=== PATIENT | male | born 1985 ===

== ENCOUNTER 2017-04-04 08:30 | Emergency (ER) | payer MEDICAID ==
--- NOTE | 2017-04-04 09:42 | ED PDOC ---
HPI: Psych/Substance Abuse Time Seen by Provider: 04/04/17 09:09 Chief Complaint (Nursing): Anxiety Chief Complaint (Provider): Anxiety History Per: Patient History/Exam Limitations: no limitations Onset/Duration Of Symptoms: Mins Current Symptoms Are (Timing): Better Suicide/Self Injury Attempted (Context): None Modifying Factor(s): None Severity: Moderate Associated Symptoms: Anxiety Involuntary Hold By: None Additional Complaint(s): Patient is a 32 year old male brought to ED by EMS for anxiety attack this morning while going to work. Patient notes a history of anxiety attack in the past, states this was the same. Reports feeling "head heaviness" with visual disturbances making him feel like ending it all. Currently patient denies SI or HI, states he is not on any medication for anxiety and denies drug use. Past Medical History Reviewed: Historical Data, Nursing Documentation, Vital Signs Vital Signs: Last Vital Signs Temp 98 F 04/04/17 08:32 Pulse 76 04/04/17 08:32 Resp 18 04/04/17 08:32 BP 160/100 H 04/04/17 08:32 Pulse Ox 98 04/04/17 08:32 - Medical History PMH: Anxiety Denies: Diabetes, Hepatitis, HIV, HTN, Seizures, Sexually Transmitted Disease - Surgical History Surgical History: No Surg Hx - Family History Family History: States: Unknown Family Hx - Living Arrangements Living Arrangements: With Family - Social History Current smoker - smoking cessation education provided: No Alcohol: None Drugs: Denies - Home Medications Home Medications: Ambulatory Orders Medication Instructions Recorded No Known Home Med 04/04/17 - Allergies Allergies/Adverse Reactions: Allergies Allergy/AdvReac Type Severity Reaction Status Date / Time No Known Allergies Allergy Verified 04/04/17 08:32 Review of Systems Constitutional: Negative for: Fever Cardiovascular: Negative for: Chest Pain, Palpitations, Light Headedness Respiratory: Negative for: Shortness of Breath Gastrointestinal: Negative for: Nausea, Vomiting, Abdominal Pain Musculoskeletal: Negative for: Neck Pain Skin: Negative for: Rash Neurological: Positive for: Other ((+) Head heaviness ). Negative for: Weakness , Numbness, Headache Psych: Positive for: Anxiety. Negative for: Depression, Psychosis, Suicidal ideation Physical Exam - Reviewed Nursing Documentation Reviewed: Yes Vital Signs Reviewed: Yes - Physical Exam Appears: Positive for: Non-toxic, No Acute Distress Head Exam: Positive for: ATRAUMATIC Skin: Positive for: Normal Color, Warm Eye Exam: Positive for: Normal appearance, PERRL Neck: Positive for: Normal, Painless ROM Cardiovascular/Chest: Positive for: Regular Rate, Rhythm. Negative for: Murmur Respiratory: Positive for: Normal Breath Sounds. Negative for: Respiratory Distress Extremity: Positive for: Normal ROM. Negative for: Calf Tenderness Neurologic/Psych: Positive for: Alert, Oriented - ECG O2 Sat by Pulse Oximetry: 98 (RA) Pulse Ox Interpretation: Normal - Progress ED Course And Treament: 1400: Stable. AAOx3. Medically stable for psych. Crisis will admit. Medical Decision Making Medical Decision Making: Time: 914 Initial impression: Anxiety Initial plan: -- Crisis evaluation Scribe Attestation: Documented by Tati Lambert acting as a scribe for Ulises Zamora MD MD Scribe Attestation: All medical record entries made by the Scribe were at my direction and personally dictated by me. I have reviewed the chart and agree that the record accurately reflects my personal performance of the history, physical exam, medical decision making, and the department course for this patient. I have also personally directed, reviewed, and agree with the discharge instructions and disposition. Disposition - Clinical Impression Clinical Impression: Anxiety - Patient ED Disposition Is Patient to be Admitted: Yes Counseled Patient/Family Regarding: Diagnosis - Disposition Disposition Time: 13:00 Condition: STABLE - Pt Status Changed To: Hospital Disposition Of: Inpatient - Admit Certification Admit to Inpatient:: After my assessment, the patient will require hospitalization for at least two midnights. This is because of the severity of symptoms shown, intensity of services needed, and/or the medical risk in this patient being treated as an outpatient. - POA Present On Arrival: None
[2017-04-04 15:25] VITALS: BP 122/65; PULSE 81; RESP 16; TEMP 98; O2SAT 100
== END 2017-04-04 15:24 | disposition home or self-care (01) ==
LOC: H.ER 08:30
DX: F41.9 Anxiety disorder, unspecified (principal)

== ENCOUNTER 2017-08-10 14:49 | Emergency (ER) | payer MEDICAID ==
[2017-08-10 15:01] VITALS: BP 151/100; PULSE 69; RESP 18; TEMP 98; O2SAT 100
== END 2017-08-10 17:09 | disposition home or self-care (01) ==
LOC: H.ER 14:49
DX: R59.1 Generalized enlarged lymph nodes (principal)

== ENCOUNTER 2018-03-03 11:50 | Emergency (ER) | payer MEDICAID, OTHER ==
[2018-03-03 11:54] VITALS: BMI 30.8
--- NOTE | 2018-03-03 13:13 | ED PDOC ---
HPI: General Adult Time Seen by Provider: 03/03/18 12:29 Chief Complaint (Nursing): Anxiety Chief Complaint (Provider): Anxiety History Per: Patient History/Exam Limitations: no limitations Onset/Duration Of Symptoms: Hrs (x1) Current Symptoms Are (Timing): Still Present Additional Complaint(s): Alan Lynn is a 33 year old male with a past medical history of anxiety, who is presenting to the ER for evaluation s/p anxiety attack onset one hour prior to arrival. Patient states that EMS was called after onset of anxiety attack and at the time he felt chest discomfort, neck pain, and muscle stiffness. He states that all symptoms have resolved since then. Patient reports that when EMS arrived his blood pressure was high, so they observed him and repeated blood pressure check. Blood pressure remained high, so they recommended he visit the ED. Patient currently has no complaints and denies any headache, chest pain, or dizziness. PMD: none provided Past Medical History Reviewed: Historical Data, Nursing Documentation, Vital Signs Vital Signs: Last Vital Signs Temp 97.9 F 03/03/18 11:54 Pulse 87 03/03/18 13:24 Resp 17 03/03/18 11:54 BP 164/89 H 03/03/18 14:45 Pulse Ox 97 03/03/18 13:18 - Medical History PMH: Anxiety Denies: Diabetes, Hepatitis, HIV, HTN, Seizures, Sexually Transmitted Disease - Family History Family History: States: Diabetes - Social History Current smoker - smoking cessation education provided: No Alcohol: Occasional - Home Medications Home Medications: Ambulatory Orders Medication Instructions Recorded Amoxicillin/Clavulanate [Augmentin 1 tab PO BID #14 tab 08/10/17 875 MG-125 MG] Ibuprofen [Motrin] 600 mg PO Q6 #20 tab 08/10/17 amLODIPine [Norvasc] 5 mg PO DAILY #30 tab 03/03/18 - Allergies Allergies/Adverse Reactions: Allergies Allergy/AdvReac Type Severity Reaction Status Date / Time No Known Allergies Allergy Verified 04/04/17 08:32 Review of Systems ROS Statement: Except As Marked, All Systems Reviewed And Found Negative Cardiovascular: Negative for: Chest Pain Neurological: Negative for: Headache, Dizziness Physical Exam - Reviewed Nursing Documentation Reviewed: Yes Vital Signs Reviewed: Yes - Physical Exam Comments: GENERAL APPEARANCE: Patient is awake, alert, oriented x 3, in no acute distress. SKIN: Warm, dry; (-) cyanosis. EYES: (-) conjunctival pallor. ENMT: Mucous membranes moist. NECK: (-) tenderness, (-) stiffness, (-) lymphadenopathy, (-) JVD. CHEST AND RESPIRATORY: (-) rash, (-) chest wall tenderness. Lungs: (-) rales , (-) rhonchi, (-) wheezes, (-) rub; breath sounds equal bilaterally. HEART AND CARDIOVASCULAR: (-) irregularity; (-) murmur, (-) gallop, (-) rub. ABDOMEN AND GI: Soft; (-) distention, (-) tenderness, (-) palpable pulsatile mass. EXTREMITIES: (-) deformity; (-) edema, (-) calf tenderness. (+) distal pulses. NEURO AND PSYCH: Mental status as above. Cranial nerves grossly intact; strength symmetric. - Laboratory Results Result Diagrams: 03/03/18 13:20 03/03/18 13:20 - ECG O2 Sat by Pulse Oximetry: 97 (RA) Pulse Ox Interpretation: Normal Medical Decision Making Medical Decision Making: Previous medical records reviewed, patient has had several visits to the emergency room last year, in December his blood pressure is 146/83 in March his blood pressure was 160/108 August his pressure was 151/100. Blood pressure readings from previous ER visits d/w the pt. Considering pt's age and other risk factors such as being overweight and being a smoker, labs, EKG and chest x-ray performed. Time: 13:08 Plan: --EKG --CMP --Troponin --CBC --CXR --Norvasc 5 mg PO --Urinalysis Blood pressure was repeated in the ED: 177/122 EKG: SR at 76 bpm, (-) acute ST changes, as read by DESI. CXR : NAD, as read by PA Labs reviewed, troponin is negative, urine dipstick performed and shows negative proteins and a urine otherwise within normal limits. On reevaluation, patient is laying in bed comfortably without distress, is calm and not anxious. Denies any headache, dizziness, chest pain, shortness of breath. Blood pressure is 164/89. Based on history, exam and diagnostic results plan will be for outpatient follow-up with the clinic. Patient advised that he has follow-up with a doctor regarding his high blood pressure. Advised to follow up with the clinic in 1-2 days without fail. Advised to take medication as prescribed. Return to the emergency room at any time for any new or worsening symptoms. Patient states he fully agrees with and understands discharge instructions. States that he agrees with the plan and disposition. Verbalized and repeated discharge instructions and plan. I have given the patient opportunity to ask any additional questions. Scribe Attestation: Documented by Rosi Sexton, acting as a scribe for Anjelica Mosley PA-C. Provider Scribe Attestation: All medical record entries made by the Scribe were at my direction and personally dictated by me. I have reviewed the chart and agree that the record accurately reflects my personal performance of the history, physical exam, medical decision making, and the department course for this patient. I have also personally directed, reviewed, and agree with the discharge instructions and disposition. Disposition - Clinical Impression Clinical Impression: Anxiety attack, Hypertension - Patient ED Disposition Is Patient to be Admitted: No Counseled Patient/Family Regarding: Studies Performed, Diagnosis, Need For Followup, Rx Given - Disposition Referrals: [facility] [Outside] Disposition: Routine/Home Disposition Time: 15:00 Condition: STABLE Additional Instructions: Thank you for letting us take care of you today. You were treated for status post anxiety attack, hypertension. The emergency medical care you received today was directed at your acute symptoms. If you were prescribed any medication , please fill it and take as directed. It may take several days for your symptoms to resolve. Return to the Emergency Department if your symptoms worsen , do not improve, or if you have any other problems. Please call one of the physicians/clinics you have been referred to that are listed on the Patient Visit Information form that is included in your discharge packet. Bring any paperwork you were given at discharge with you along with any medications you are taking to your follow up visit. Our treatment cannot replace ongoing medical care by a primary care provider (PCP) outside of the emergency department. Thank you for allowing the [facility] team to be part of your care today. 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
[2018-03-03 13:33] LABS: BASO # 0.1 K/uL (0.0-0.2); BASO % 0.5 % (0.0-2.0); EOS # 0.1 K/uL (0.0-0.7); EOS % 0.7 % (0.0-4.0); HEMOGLOBIN 16.9 g/dL (12.0-18.0); LYMPH # 1.2 K/uL (1.0-4.3); LYMPH % 9.5 % (20.0-40.0); MEAN CELL VOLUME 86.5 fl (80.0-94.0); MEAN CORPUSCULAR HEMOGLOBIN 30.8 pg (27.0-31.0); MEAN CORPUSCULAR HGB CONC 35.6 g/dL (33.0-37.0); MEAN PLATELET VOLUME 9.2 fl (7.2-11.7); MONO # 0.8 K/uL (0.0-0.8); MONO % 6.1 % (0.0-10.0); NEUT # 10.4 K/uL (1.8-7.0); NEUT % 83.2 % (50.0-75.0); NRBC % 1.2 % (0.0-0.0); PLATELET COUNT 213 K/uL (130-400); RBC 5.49 Mil/uL (4.40-5.90); RED CELL DISTRIBUTION WIDTH 13.3 % (11.5-14.5); WHITE BLOOD COUNT 12.5 K/uL (4.8-10.8)
[2018-03-03 13:50] LABS: ALB/GLOB RATIO 1.2 (1.0-2.1); ALBUMIN 4.6 g/dL (3.5-5.0); ALT/SGPT 118 U/L (21-72); AST/SGOT 67 U/L (17-59); BLOOD UREA NITROGEN 13 mg/dl (9-20); CALCIUM 9.7 mg/dL (8.4-10.2); GFR AFRICAN-AMERICAN > 60; GFR NON-AFRICAN AMERICAN > 60
[2018-03-03 14:34] LABS: BASOPHIL 1 % (0-2); LYMPHOCYTE 11 % (20-50); MONOCYTE 10 % (0-10); NEUTROPHIL 76 % (42-75); PLATELET ESTIMATE NORMAL (NORMAL); REACTIVE LYMPHOCYTES 2 % (0-0); TOTAL CELLS COUNTED 100
--- NOTE | 2018-03-03 14:36 | RAD ---
HISTORY: COMPARISON: No prior. TECHNIQUE: Chest PA and lateral FINDINGS: LINES AND TUBES: None. LUNG AND PLEURA: The lungs are well inflated and clear. No pleural effusions or pneumothorax. HEART AND MEDIASTINUM: The heart is not enlarged. The hilar and mediastinal contours are within normal limits. SKELETAL STRUCTURES: The bony structures are within normal limits for the patient's age. VISUALIZED UPPER ABDOMEN: Normal. OTHER FINDINGS: None. IMPRESSION: No active pulmonary disease.
[2018-03-03 14:45] VITALS: BP 164/89
[2018-03-03 15:14] VITALS: PULSE 74; RESP 22; TEMP 98.1; O2SAT 99
--- NOTE | 2018-03-04 08:52 | CARD ---
APPROVED REPORT EKG Measurement Heart [id number] <Conclusion> Sinus rhythm with marked sinus arrhythmia Nonspecific T wave abnormality Abnormal ECG
== END 2018-03-03 15:14 | disposition home or self-care (01) ==
LOC: H.ER 11:50
DX: F41.9 Anxiety disorder, unspecified (principal); I10 Essential (primary) hypertension

== ENCOUNTER 2019-02-12 21:34 | Emergency (ER) | payer MEDICAID ==
[2019-02-12 21:34] VITALS: BMI 30.8
[2019-02-12 22:35] VITALS: PULSE 86; RESP 18
--- NOTE | 2019-02-12 23:12 | ED PDOC ---
HPI: Influenza Time Seen by Provider: 02/12/19 22:55 Chief Complaint: Cough, Cold, Congestion Past Medical History Vital Signs: Last Vital Signs Temp 97.5 F L 02/12/19 22:31 Pulse 86 02/12/19 22:31 Resp 18 02/12/19 22:31 BP 140/100 H 02/12/19 22:31 Pulse Ox 98 02/12/19 22:31 - Medical History PMH: Anxiety Denies: Diabetes, Hepatitis, HIV, HTN, Seizures, Sexually Transmitted Disease - Family History Family History: States: Unknown Family Hx, Diabetes - Home Medications Home Medications: Ambulatory Orders Medication Instructions Recorded Amoxicillin/Clavulanate [Augmentin 1 tab PO BID #14 tab 08/10/17 875 MG-125 MG] Ibuprofen [Motrin] 600 mg PO Q6 #20 tab 08/10/17 amLODIPine [Norvasc] 5 mg PO DAILY #30 tab 03/03/18 - Allergies Allergies/Adverse Reactions: Allergies Allergy/AdvReac Type Severity Reaction Status Date / Time No Known Allergies Allergy Verified 04/04/17 08:32 - ECG O2 Sat by Pulse Oximetry: 98 Disposition - Disposition
[2019-02-12] MEDS ORDERED: Albuterol-Ipratrop 3 mg / 0.5 (3 ml) UD INH STA ×2 (23:38→23:39)
[2019-02-13] MEDS ORDERED: Albuterol-Ipratrop 3 mg / 0.5 (3 ml) UD ONE (00:02)
[2019-02-13 02:22] VITALS: O2SAT 98
--- NOTE | 2019-02-13 02:22 | ED PDOC ---
HPI: CCC, URI, Sore Throat Time Seen by Provider: 02/12/19 22:55 Chief Complaint (Nursing): Cough, Cold, Congestion Chief Complaint (Provider): Cough History Per: Patient History/Exam Limitations: no limitations Onset/Duration Of Symptoms: Days (x 3 weeks) Current Symptoms Are (Timing): Still Present Location Of Pain: None Sick Contacts (Context): Friend(s) (girlfriend) Associated Symptoms: Cough, Sputum (white) Additional Complaint(s): 34 year old male with no medical history presents to the ED for evaluation of a cough productive of white phlegm for 3 weeks. Patient reports he initially had chills that have since resolved. He states that his girlfriend has similar symptoms and was diagnosed with bronchitis. Patient is currently requesting nebulizer treatments. Denies fever, sweats, weight loss and recent travel. PMD: Dr. Seymour Mehta Past Medical History Reviewed: Historical Data, Nursing Documentation, Vital Signs Vital Signs: Last Vital Signs Temp 97.5 F L 02/12/19 22:31 Pulse 86 02/12/19 22:31 Resp 18 02/12/19 22:31 BP 140/100 H 02/12/19 22:31 Pulse Ox 95 02/13/19 00:32 - Medical History PMH: Anxiety Denies: Diabetes, Hepatitis, HIV, HTN, Seizures, Sexually Transmitted Disease - Surgical History Surgical History: No Surg Hx - Family History Family History: States: Unknown Family Hx, Diabetes - Home Medications Home Medications: Ambulatory Orders Medication Instructions Recorded Amoxicillin/Clavulanate [Augmentin 1 tab PO BID #14 tab 08/10/17 875 MG-125 MG] Ibuprofen [Motrin] 600 mg PO Q6 #20 tab 08/10/17 amLODIPine [Norvasc] 5 mg PO DAILY #30 tab 03/03/18 Albuterol HFA [Ventolin HFA 90 2 puff IH [id number] #1 puff 02/13/19 mcg/actuation (8 g)] Prednisone [Deltasone] 40 mg PO DAILY 3 Days #6 tablet 02/13/19 - Allergies Allergies/Adverse Reactions: Allergies Allergy/AdvReac Type Severity Reaction Status Date / Time No Known Allergies Allergy Verified 04/04/17 08:32 Review of Systems ROS Statement: Except As Marked, All Systems Reviewed And Found Negative Constitutional: Negative for: Fever, Chills, Sweats, Weight loss Respiratory: Positive for: Cough, Sputum (white) Physical Exam - Reviewed Nursing Documentation Reviewed: Yes Vital Signs Reviewed: Yes - Physical Exam Appears: Positive for: Non-toxic, No Acute Distress Head Exam: Positive for: ATRAUMATIC, NORMAL INSPECTION, NORMOCEPHALIC Skin: Positive for: Normal Color, Warm, Dry Eye Exam: Positive for: EOMI, Normal appearance, PERRL Neck: Positive for: Normal, Painless ROM, Supple Cardiovascular/Chest: Positive for: Regular Rate, Rhythm. Negative for: Murmur Respiratory: Positive for: Normal Breath Sounds. Negative for: Wheezing, Respiratory Distress Gastrointestinal/Abdominal: Positive for: Normal Exam, Soft. Negative for: Tenderness Back: Positive for: Normal Inspection. Negative for: L CVA Tenderness, R CVA Tenderness Extremity: Positive for: Normal ROM (x 4). Negative for: Deformity Neurological/Psych: Positive for: Awake, Alert, Normal Tone, Oriented (x 3). Negative for: Motor/Sensory Deficits - ECG O2 Sat by Pulse Oximetry: 98 (RA) Pulse Ox Interpretation: Normal Medical Decision Making Medical Decision Makin:38 A&P: bronchospastic cough Well appearing patient Will provide symptomatic treatment and re-evaluate. 00:44 Patient reports improvement of symptoms and is stable for discharge. Scribe Attestation: Documented by Cherelle Du, acting as a scribe Amanda Ugarte MD Provider Scribe Attestation: All medical record entries made by the Scribe were at my direction and personally dictated by me. I have reviewed the chart and agree that the record accurately reflects my personal performance of the history, physical exam, medical decision making, and the department course for this patient. I have also personally directed, reviewed, and agree with the discharge instructions and disposition. Disposition - Clinical Impression Clinical Impression: Cough - Patient ED Disposition Is Patient to be Admitted: No - Disposition Referrals: [facility] [Outside] Disposition: Routine/Home Disposition Time: 00:45 Condition: IMPROVED Prescriptions: Albuterol HFA [Ventolin HFA 90 mcg/actuation (8 g)] 2 puff IH [id number] #1 puff Prednisone [Deltasone] 40 mg PO DAILY 3 Days #6 tablet Instructions: Acute Bronchitis Forms: [facility] ([place])
[2019-02-13 02:42] VITALS: BP 122/78; TEMP 98.4
== END 2019-02-13 02:41 | disposition home or self-care (01) ==
LOC: H.ER 21:34
DX: R05 Cough (principal); F41.9 Anxiety disorder, unspecified